=== PATIENT | female | born 1995 | race Caucasian/White ===

== ENCOUNTER 2016-12-16 15:00 | Emergency (ER) | payer OTHER ==
[2016-12-16] MEDS ORDERED: SUBLIMAZE 100 MCG/2 ML IV ONE (15:04)
[2016-12-16] MEDS ORDERED: Sodium Chloride 0.9% 1000 ML 1,000 ML ONE (15:11)
[2016-12-16] MEDS ORDERED: SUBLIMAZE 100 MCG/2 ML ONE (15:11)
[2016-12-16] MEDS ORDERED: Sodium Chloride 0.9% 1000 ML 1,000 ML IV SCH (15:15)
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
[2016-12-16 15:22] LABS: BASOPHIL % 0.2 % (0.0-0.4); Eosinophil % 0.4 % (0.00-5.0); Granulocytes % 72.1 % (36.0-66.0); Lymphocytes % 18.9 % (24.0-44.0); Mean Cell Volume 91.6 fl (78-100); Mean Corpuscular Hemoglobin 30.4 pg (26-32); Mean Platelet Volume 10.1 fl (6-9.5); Monocytes % 8.4 % (0.0-12.0); Platelet Count 173 K/mm3 (150-450); Red Blood Count 4.51 M/mm3 (4.1-5.4); Red Cell Distribution Width 12.1 % (11.5-14.0)
[2016-12-16 15:43] LABS: INR 1.11 (0.8-3.0); PROTIME 12.3 SECONDS (9.95-12.35)
[2016-12-16 15:45] LABS: ALKALINE PHOSPHATASE 87 U/L (46-116); ANION GAP 12.1 MEQ/L (5-15); BLOOD UREA NITROGEN 12 mg/dL (9-20); CHLORIDE 103 mEq/L (98-107); Carbon Dioxide 27.5 mEq/L (21-32); ETHYL ALCOHOL < 0.010 % (0.00-0.01); Glucose 88 MG/DL (70-110); PTT 29.5 SECONDS (25.3-37.0); SGOT/AST 39 U/L (15-37); SGPT/ALT 51 U/L (12-78); SODIUM 139 mEq/L (136-145); Total Protein 7.5 gm/dL (6.4-8.2)
[2016-12-16 16:16] LABS: Bilirubin NEGATIVE (NEGATIVE); Blood TRACE NON-HEM Ery/ul (0-5); COMPLETE URINE MICROSCOPIC? YES; Collection Type VOID; Glucose NEGATIVE (NEGATIVE); Leukocyte Esterase TRACE (NEGATIVE)
[2016-12-16 16:17] LABS: ADD URINE CULTURE? YES (NO); Bacteria MODERATE /HPF (NEGATIVE); Epithelial Cells PACKED /HPF (FEW); Mucus SLIGHT /HPF (NEGATIVE)
[2016-12-16 17:00] VITALS: BP 114/72; PULSE 104; O2SAT 98
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
== END 2016-12-16 17:09 | disposition home or self-care (01) ==
LOC: ED 15:00
DX: S20.212A Contusion of left front wall of thorax, initial encounter (principal); S13.4XXA Sprain of ligaments of cervical spine, initial encounter; V49.49XA Driver injured in collision with other motor vehicles in traffic accident, initial encounter; R10.9 Unspecified abdominal pain; M54.2 Cervicalgia; R07.9 Chest pain, unspecified
CPT/HCPCS: 36000; 36415; 71260; 72125; 74177; 80053; 80307; 81000; 84703; 85025; 85610; 85730; 86850; 86900; 86901; 87077; 87086; 87186; 93041; 96360; 96361; 96374; 99284; G0481; J3010

== ENCOUNTER 2021-04-18 11:25 | Emergency (ER) | payer OTHER ==
[2021-04-18] MEDS ORDERED: Zofran 4 MG/2 ML VIAL IV ONE (11:57)
[2021-04-18] MEDS ORDERED: Pepcid 20 MG VIAL IV ONE ×2 (11:57→12:09)
[2021-04-18] MEDS ORDERED: Sodium Chloride 0.9% 1000 ML 1,000 ML IV STA (11:57)
[2021-04-18] MEDS ORDERED: Zofran 4 MG/2 ML VIAL ONE (12:09)
[2021-04-18] MEDS ORDERED: TORAdol 30 mg Injection ONE (12:09)
[2021-04-18] MEDS ORDERED: Sodium Chloride 0.9% 1000 ML 1,000 ML ONE (12:09)
[2021-04-18 12:10] LABS: Absolute Neutrophil Ct (ANC) 2.51 (1.4-6.9); Basophil (Absolute #) 0.01 (0-0.4); Eosinophil % 0.7 % (0.00-5.0); Eosinophil (Absolute #) 0.03 (0-0.5); Hematocrit 42.4 % (35-47); Hemoglobin 13.9 gm/dl (12.0-16.0); Lymphocyte (Absolute #) 1.52 (1.0-4.6); Lymphocytes % 34.9 % (24.0-44.0); Mean Cell Volume 92.2 fl (78-100); Mean Corpuscular Hemoglobin 30.2 pg (26-32); Mean Corpuscular Hgb Concent. 32.8 g/dl (32-36); Mean Platelet Volume 10.3 fl (7.5-11.0); Monocyte (Absolute #) 0.29 (0.0-1.3); Monocytes % 6.7 % (0.0-12.0); Neutrophil % 57.5 % (36.0-66.0); Platelet Count 235 K/mm3 (150-450); Red Cell Distribution Width 12.1 % (11.5-14.0); White Blood Count 4.4 K/mm3 (4.0-10.5)
[2021-04-18 12:12] LABS: Appearance CLOUDY (CLEAR); Bilirubin NEGATIVE (NEGATIVE); Blood MODERATE Ery/ul (0-5); Epithelial Cells RARE /HPF (FEW); Glucose NEGATIVE (NEGATIVE); Ketones TRACE (NEGATIVE); Leukocyte Esterase NEGATIVE (NEGATIVE); Mucus MANY /HPF (NEGATIVE); Nitrite NEGATIVE (NEGATIVE); Protein,Urine Dip 30 (Negative); Urobilinogen NEGATIVE mg/dL (0-1); WBC 0-2 /HPF (0-5)
[2021-04-18] MEDS: TORAdol 30 mg Injection IV ONE ×2 (12:12→12:13)
[2021-04-18 12:31] LABS: ALBUMIN 4.3 g/dL (3.5-5.0); ALKALINE PHOSPHATASE 75 U/L (38-126); ANION GAP 12.9 MEQ/L (5-15); BLOOD UREA NITROGEN 13 mg/dL (7-17); CHLORIDE 106 mmol/L (98-107); Calcium 9.3 mg/dL (8.4-10.2); Carbon Dioxide 26 mmol/L (22-30); Creatinine 1 0.63 mg/dL (0.52-1.04); EST GLOMERULAR FILTRATION RATE > 60.0 ML/MIN; Glucose 87 mg/dL (74-106); LIPASE 81 U/L (23-300); Potassium 3.7 mmol/L (3.5-5.1); SGOT/AST 35 U/L (14-36); SGPT/ALT 62 U/L (0-35); SODIUM 141 mmol/L (137-145); Total Protein 7.1 g/dL (6.3-8.2)
[2021-04-18 12:43] VITALS: O2SAT 100
[2021-04-18 14:04] VITALS: BP 114/64
--- NOTE | 2021-04-18 14:27 | ERPHSYRPT ---
- History of Present Illness Time Seen by Provider: 04/18/21 11:32 Historian: patient Exam Limitations: no limitations Patient Subjective Stated Complaint: here for vomiting x3 yesterday and nausea. pain to right side of abd. no fever Triage Nursing Assessment: alert, walked in, resp easy, skin w/d/p, abd soft, tender to palpate Physician History: 25-year-old female presented to the ER with chief complaint of abdominal pain more on the right side and some on the left for the last 3 days, moderate intensity, associated with nausea and 2-3 episodes of nonprojectile, nonbilious vomiting without hematemesis. Timing/Duration: day(s) (3), resolved prior to arrival, gradual onset Activities at Onset: rest Quality: cramping, dullness Abdominal Pain Onset Location: RUQ, LUQ, RLQ, periumbilical Pain Radiation: no radiation Severity of Pain-Max: moderate Severity of Pain-Current: moderate Modifying Factors: Worsens With: movement, palpation, vomiting Associated Symptoms: nausea, vomiting Previous symptoms: no prior history Allergies/Adverse Reactions: No Known Drug Allergies Allergy (Verified 04/18/21 11:27) Home Medications: Omeprazole 20 MG [Prilosec 20 mg] 20 mg PO DAILY 12/16/16 [History] Hx Tetanus, Diphtheria Vaccination/Date Given: Yes (2016) Hx Influenza Vaccination/Date Given: No Hx Pneumococcal Vaccination/Date Given: No Immunizations Up to Date: Yes Travel Risk - International Travel Have you traveled outside of the country in past 3 weeks: No - Coronavirus Screening Are you exhibiting any of the following symptoms?: Yes Symptoms: Vomiting/Diarrhea Close contact with a COVID-19 positive Pt in past 14-21 Days: No - Vaccine Status Have you recieved a Covid-19 vaccination: No - Review of Systems Constitutional: No Symptoms Eyes: No Symptoms Ears, Nose, & Throat: No Symptoms Respiratory: No Symptoms Cardiac: No Symptoms Abdominal/Gastrointestinal: Abdominal Pain, Nausea, Vomiting Genitourinary Symptoms: No Symptoms Musculoskeletal: No Symptoms Skin: No Symptoms Neurological: No Symptoms Psychological: No Symptoms Endocrine: No Symptoms Hematologic/Lymphatic: No Symptoms Immunological/Allergic: No Symptoms - Past Medical History Pertinent Past Medical History: Yes Neurological History: No Pertinent History ENT History: No Pertinent History Cardiac History: No Pertinent History Respiratory History: No Pertinent History Endocrine Medical History: No Pertinent History Musculoskeletal History: No Pertinent History GI Medical History: GERD History: No Pertinent History Psycho-Social History: No Pertinent History Female Reproductive Disorders: No Pertinent History - Past Surgical History Past Surgical History: Yes Other Surgical History: EAR CYST REMOVAL - Social History Smoking Status: Never smoker Exposure to second hand smoke: No Drug Use: none Patient Lives Alone: No - Female History Hx Last Menstrual Period: now Hx Now: (unkn) - Nursing Vital Signs Nursing Vital Signs: Initial Vital Signs Temperature 98.7 F 04/18/21 11:28 Pulse Rate 78 04/18/21 11:28 Respiratory Rate 18 04/18/21 11:28 Blood Pressure 126/75 04/18/21 11:28 O2 Sat by Pulse Oximetry 97 04/18/21 11:28 Pain Scale Pain Intensity 4 - Physical Exam General Appearance: no apparent distress, alert Eye Exam: PERRL/EOMI Ears, Nose, Throat Exam: normal ENT inspection, pharynx normal Neck Exam: normal inspection, non-tender, supple, full range of motion Respiratory Exam: normal breath sounds, lungs clear Cardiovascular Exam: regular rate/rhythm, normal heart sounds Gastrointestinal/Abdomen Exam: soft, normal bowel sounds, tenderness (Mild to moderate generalized) Back Exam: normal inspection, normal range of motion, No CVA tenderness Extremity Exam: normal inspection, normal range of motion Neurologic Exam: alert, oriented x 3, cooperative Skin Exam: normal color SpO2 Interpretation: normal SpO2: 100 O2 Delivery: Room Air Ordered Tests: Active Orders 24 hr Category Date Time Status IV Insertion STAT Care 04/18/21 11:57 Active NPO (ED) STAT Care 04/18/21 11:57 Active ABDOMEN AND PELVIS W CONTRAST [CT] Stat Exams 04/18/21 13:03 Taken CBC W DIFF Stat Lab 04/18/21 11:50 Completed CMP Stat Lab 04/18/21 11:50 Completed HCG,QUALITATIVE URINE Stat Lab 04/18/21 11:58 Completed LIPASE Stat Lab 04/18/21 11:50 Completed UA W/RFX UR CULTURE Stat Lab 04/18/21 11:58 Completed Medication Summary Discontinued Medications Generic Name Dose Route Start Last Admin Trade Name Freq PRN Reason Stop Dose Admin Famotidine 20 mg 04/18/21 11:57 04/18/21 12:22 Famotidine 20 Mg/1 Vial IV 04/18/21 11:58 20 mg STAT ONE Administration Famotidine Confirm 04/18/21 12:09 Famotidine 20 Mg/1 Vial Administered 04/18/21 12:10 Dose 20 mg IV .STK-MED ONE Sodium Chloride 1,000 mls @ 999 mls/hr 04/18/21 11:57 04/18/21 14:02 Sodium Chloride 0.9% 1000 Ml IV 04/18/21 12:57 Infused .Q1H1M STA Infusion Sodium Chloride Confirm 04/18/21 12:09 Sodium Chloride 0.9% 1000 Ml Administered 04/18/21 12:10 Dose 1,000 mls @ ud .ROUTE .STK-MED ONE Ketorolac Tromethamine 30 mg 04/18/21 11:57 04/18/21 12:13 Ketorolac Tromethamine 30 Mg/Ml Inj IV 04/18/21 11:58 30 mg STAT ONE Administration Ketorolac Tromethamine Confirm 04/18/21 12:09 Ketorolac Tromethamine 30 Mg/Ml Inj Administered 04/18/21 12:10 Dose 30 mg .ROUTE .STK-MED ONE Ondansetron HCl 4 mg 04/18/21 11:57 04/18/21 12:11 Ondansetron Hcl 4 Mg/2 Ml Vial IV 04/18/21 11:58 4 mg STAT ONE Administration Ondansetron HCl Confirm 04/18/21 12:09 Ondansetron Hcl 4 Mg/2 Ml Vial Administered 04/18/21 12:10 Dose 4 mg .ROUTE .STK-MED ONE Lab/Rad Data: Laboratory Result Diagrams 04/18/21 11:50 04/18/21 11:50 Laboratory Results 04/18/21 04/18/21 04/18/21 Range/Units 11:58 11:58 11:50 WBC (4.0-10.5) K/mm3 RBC (4.1-5.4) M/mm3 Hgb (12.0-16.0) gm/dl Hct (35-47) % MCV (78-100) fl MCH (26-32) pg MCHC (32-36) g/dl RDW (11.5-14.0) % Plt Count (150-450) K/mm3 MPV (7.5-11.0) fl Gran % (36.0-66.0) % Eos # (Auto) (0-0.5) Absolute Lymphs (auto) (1.0-4.6) Absolute Monos (auto) (0.0-1.3) Lymphocytes % (24.0-44.0) % Monocytes % (0.0-12.0) % Eosinophils % (0.00-5.0) % Basophils % (0.0-0.4) % Absolute Granulocytes (1.4-6.9) Basophils # (0-0.4) Sodium 141 (137-145) mmol/L Potassium 3.7 (3.5-5.1) mmol/L Chloride 106 (98-107) mmol/L Carbon Dioxide 26 (22-30) mmol/L Anion Gap 12.9 (5-15) MEQ/L BUN 13 (7-17) mg/dL Creatinine 0.63 (0.52-1.04) mg/dL Estimated GFR > 60.0 ML/MIN Glucose 87 (74-106) mg/dL Calcium 9.3 (8.4-10.2) mg/dL Total Bilirubin 1.40 H (0.2-1.3) mg/dL AST 35 (14-36) U/L ALT 62 H (0-35) U/L Alkaline Phosphatase 75 (38-126) U/L Serum Total Protein 7.1 (6.3-8.2) g/dL Albumin 4.3 (3.5-5.0) g/dL Lipase 81 (23-300) U/L Urine Color YELLOW (YELLOW) Urine Appearance CLOUDY (CLEAR) Urine pH 6.0 (5-6) Ur Specific [place] 1.020 (1.005-1.025) Urine Protein 30 (Negative) Urine Ketones TRACE (NEGATIVE) Urine Blood MODERATE (0-5) Jose Antonio/ul Urine Nitrite NEGATIVE (NEGATIVE) Urine Bilirubin NEGATIVE (NEGATIVE) Urine Urobilinogen NEGATIVE (0-1) mg/dL Ur Leukocyte Esterase NEGATIVE (NEGATIVE) Urine WBC (Auto) 0-2 (0-5) /HPF Urine RBC (Auto) NONE (0-2) /HPF U Epithel Cells (Auto) RARE (FEW) /HPF Urine Bacteria (Auto) NONE (NEGATIVE) /HPF Urine Mucus (Auto) MANY (NEGATIVE) /HPF Urine Culture Reflexed NO (NO) Urine Glucose NEGATIVE (NEGATIVE) mg/dL Urine HCG, Qual NEGATIVE (Negative) 04/18/21 Range/Units 11:50 WBC 4.4 (4.0-10.5) K/mm3 RBC 4.60 (4.1-5.4) M/mm3 Hgb 13.9 (12.0-16.0) gm/dl Hct 42.4 (35-47) % MCV 92.2 (78-100) fl MCH 30.2 (26-32) pg MCHC 32.8 (32-36) g/dl RDW 12.1 (11.5-14.0) % Plt Count 235 (150-450) K/mm3 MPV 10.3 (7.5-11.0) fl Gran % 57.5 (36.0-66.0) % Eos # (Auto) 0.03 (0-0.5) Absolute Lymphs (auto) 1.52 (1.0-4.6) Absolute Monos (auto) 0.29 (0.0-1.3) Lymphocytes % 34.9 (24.0-44.0) % Monocytes % 6.7 (0.0-12.0) % Eosinophils % 0.7 (0.00-5.0) % Basophils % 0.2 (0.0-0.4) % Absolute Granulocytes 2.51 (1.4-6.9) Basophils # 0.01 (0-0.4) Sodium (137-145) mmol/L Potassium (3.5-5.1) mmol/L Chloride (98-107) mmol/L Carbon Dioxide (22-30) mmol/L Anion Gap (5-15) MEQ/L BUN (7-17) mg/dL Creatinine (0.52-1.04) mg/dL Estimated GFR ML/MIN Glucose (74-106) mg/dL Calcium (8.4-10.2) mg/dL Total Bilirubin (0.2-1.3) mg/dL AST (14-36) U/L ALT (0-35) U/L Alkaline Phosphatase (38-126) U/L Serum Total Protein (6.3-8.2) g/dL Albumin (3.5-5.0) g/dL Lipase (23-300) U/L Urine Color (YELLOW) Urine Appearance (CLEAR) Urine pH (5-6) Ur Specific [place] (1.005-1.025) Urine Protein (Negative) Urine Ketones (NEGATIVE) Urine Blood (0-5) Jose Antonio/ul Urine Nitrite (NEGATIVE) Urine Bilirubin (NEGATIVE) Urine Urobilinogen (0-1) mg/dL Ur Leukocyte Esterase (NEGATIVE) Urine WBC (Auto) (0-5) /HPF Urine RBC (Auto) (0-2) /HPF U Epithel Cells (Auto) (FEW) /HPF Urine Bacteria (Auto) (NEGATIVE) /HPF Urine Mucus (Auto) (NEGATIVE) /HPF Urine Culture Reflexed (NO) Urine Glucose (NEGATIVE) mg/dL Urine HCG, Qual (Negative) - Progress Progress: improved Progress Note: 04/18/21 14:24 She is given fluids along with Zofran and Toradol for symptomatic relief. On reevaluation patient is pain-free, no nausea or vomiting while in the ER. Has normal white count, grossly unremarkable chemistries, no UTI. CT showed right adnexal cyst but no other acute intra-abdominal findings. Recommended outpatient follow-up with [facility]. Discussed signs symptoms of worsening needing return to ER which she seems understanding. Stable for discharge. Counseled pt/family regarding: lab results, diagnosis, need for follow-up, rad results - Departure Departure Disposition: Home Clinical Impression: Generalized abdominal pain, Adnexal cyst Condition: Stable Critical Care Time: No Referrals: FRANCY BRAVO MD [Primary Care Provider] - Follow Up with PCP/3 days Instructions: Acute Abdomen (Belly Pain), Adult (DC), Ovarian Cyst (DC) Additional Instructions: Take Tylenol/ibuprofen as needed for pain. Follow-up with primary care for reevaluation/[facility]. Return to ER for worsening pain, intractable nausea vomiting/fever chills
[2021-04-18 14:29] VITALS: PULSE 48
--- NOTE | 2021-04-18 19:34 | XRAY ---
Indication: Right abdomen pain, nausea, and vomiting. Multiple contiguous axial images obtained through the abdomen and pelvis using 80 cc Isovue 370 contrast. Comparison: December 16, 2016. Lung bases remain clear. Heart not enlarged. Noncontrasted stomach and bowel loops nonobstructed. Appendix not visualized. New 3.3 cm right ovary cyst. No free fluid/air. Remaining liver, gallbladder, pancreas, spleen, adrenal glands, kidneys, ureters, bladder, uterus, and aorta are unremarkable. No pathologic retroperitoneal lymphadenopathy. Osseous structures intact. Impression: 1. New 3.3 cm right ovary cyst. 2. Remaining CT abdomen/pelvis with contrast exam is negative. Comment: Preliminary interpretation made by [facility]. No critical discrepancy.
== END 2021-04-18 14:35 | disposition home or self-care (01) ==
LOC: ED 11:25
DX: N83.201 Unspecified ovarian cyst, right side (principal); R10.84 Generalized abdominal pain; R11.2 Nausea with vomiting, unspecified; K21.9 Gastro-esophageal reflux disease without esophagitis
CPT/HCPCS: 36000; 36415; 74177; 80053; 81001; 83690; 84703; 85025; 96360; 96374; 96375; 99284; J1885; J2405

== ENCOUNTER 2024-06-16 09:43 | Emergency (ER) | payer BC, OTHER ==
[2024-06-16 10:15] VITALS: RESP 18; TEMP 98.9; O2SAT 99
[2024-06-16 10:16] LABS: HCG URINE TEST NEGATIVE (NEGATIVE)
[2024-06-16 10:17] LABS: Appearance CLEAR (Clear); Ph 6.5 (4.6-8.0)
[2024-06-16 10:18] LABS: Bilirubin Negative (Negative); Blood Negative (Negative); Glucose, Urine Negative (Negative); Ketones 15 (Negative); Leukocyte Esterase Trace (Negative); Nitrite Negative (Negative); Protein,Urine Dip Negative (Negative); Urobilinogen 0.2 mg/dL (0.2)
--- NOTE | 2024-06-16 10:26 | ERPHSYRPT ---
- History of Present Illness Time Seen by Provider: 06/16/24 10:26 Source: patient Exam Limitations: no limitations Patient Subjective Stated Complaint: C/O UTI for 2 days. Indicates dysuria and low back pain. Triage Nursing Assessment: Patient ambulated back to ER. She is alert and oriented. NO SOB. Skin tone normal. Denies abdominal or pelvic pain. Timing/Duration: day(s) (2) Activites at Onset: none Quality: cramping Onset Location: suprapubic, generalized flank Pain Radiation: none Severity of Pain-Max: mild Severity of Pain-Current: mild Prior abdominal problems: UTI Sexual intercourse history: less than 2 months ago, single partner Associated Symptoms: nausea, vomiting, dysuria, polyuria, urinary frequency, No abdominal pain, No fever, No vaginal discharge, No vaginal fluid leakage Allergies/Adverse Reactions: No Known Drug Allergies Allergy (Verified 06/16/24 10:05) Home Medications: Norethindrone AC-Eth Estradiol [Aurovela 1 mg-20 Mcg Tablet] 1 tab PO DAILY 06/16/24 [History] Hx Tetanus, Diphtheria Vaccination/Date Given: Yes (2016) Hx Influenza Vaccination/Date Given: No Hx Pneumococcal Vaccination/Date Given: No Travel Risk - International Travel Have you traveled outside of the country in past 3 weeks: No - Emerging Infectious Disease Are you exhibiting symptoms associated with any current EIDs: Yes Symptoms: Vomitting - Review of Systems All Other Systems: Reviewed and Negative - Past Medical History Pertinent Past Medical History: Yes Neurological History: No Pertinent History ENT History: No Pertinent History Cardiac History: No Pertinent History Respiratory History: No Pertinent History Endocrine Medical History: No Pertinent History Musculoskeletal History: No Pertinent History GI Medical History: GERD History: No Pertinent History Psycho-Social History: No Pertinent History Female Reproductive Disorders: No Pertinent History - Past Surgical History Past Surgical History: Yes Other Surgical History: EAR CYST REMOVAL - Female History Hx Last Menstrual Period: 06/10/24 Hx Now: No ( control pill) - Social History Smoking Status: Never smoker Exposure to second hand smoke: No Drug Use: none - Social Determinants of Health Will the patient participate in the screening: Yes Do you worry about a steady place to live?: No Do you have any problems with any of the following?: No known problems In the past 12 months,have you had to go without utilities?: No Transportation Issues: No Has anyone in your support network made you feel unsafe?: No Have you or anyone in your house had to go w/o enough food: No - Nursing Vital Signs Nursing Vital Signs: Initial Vital Signs Temperature 98.9 F 06/16/24 10:00 Pulse Rate 64 06/16/24 10:00 Respiratory Rate 18 06/16/24 10:00 Blood Pressure 120/68 06/16/24 10:00 O2 Sat by Pulse Oximetry 99 06/16/24 10:00 Pain Scale Pain Intensity 6 - Physical Exam General Appearance: no apparent distress Respiratory Exam: normal breath sounds, airway intact, No respiratory distress Cardiovascular Exam: regular rate/rhythm, capillary refill <2 sec Gastrointestinal/Abdomen Exam: soft, tenderness (suprapubic) Back Exam: CVA tenderness (bilateral) Neurologic Exam: alert, oriented x 3, cooperative Skin Exam: normal color, warm, dry, No rash SpO2 Interpretation: normal SpO2: 99 O2 Delivery: Room Air - Course Nursing assessment & vital signs reviewed: Yes Ordered Tests: Active Orders 24 hr Category Date Time Status CULTURE,URINE Stat Lab 06/16/24 10:06 Received HCG QUALITATIVE, URINE Stat Lab 06/16/24 10:06 Completed UA W/RFX UR CULTURE Stat Lab 06/16/24 10:06 Completed Medication Summary Discontinued Medications Generic Name Dose Route Start Last Admin Trade Name Deionq PRN Reason Stop Dose Admin Nitrofurantoin Macrocrystals 100 mg 06/16/24 10:29 06/16/24 10:31 Nitrofurantoin Macro 100 Mg Capsule PO 06/16/24 10:30 100 mg STAT ONE Administration Nitrofurantoin Macrocrystals Confirm 06/16/24 10:30 Nitrofurantoin Macro 100 Mg Capsule Administered 06/16/24 10:31 Dose 100 mg .ROUTE .STK-MED ONE Lab/Rad Data: Laboratory Results 06/16/24 06/16/24 Range/Units 10:06 10:06 Urine Color YELLOW (Yellow) Urine Appearance CLEAR (Clear) Urine pH 6.5 (4.6-8.0) Ur Specific [place] 1.020 (1.005-1.030) Urine Protein Negative (Negative) Urine Glucose (UA) Negative (Negative) mg/dL Urine Ketones 15 A (Negative) Urine Blood Negative (Negative) Urine Nitrite Negative (Negative) Urine Bilirubin Negative (Negative) Urine Urobilinogen 0.2 (0.2) mg/dL Ur Leukocyte Esterase Trace A (Negative) Urine Microscopic WBC 3-5 (0-5) /HPF Ur Epithelial Cells Moderate A (None Seen) /HPF Urine Bacteria Few A (None Seen) /HPF Urine Culture Reflexed YES (NO) Urine HCG, Qual NEGATIVE (NEGATIVE) - Progress Progress Note: 06/16/24 10:36 Differential Diagnosis: -UTI (possible due to dysuria, urinary frequency, and CVA tenderness) -Pyelonephritis (possible due to dysuria, urinary frequency, CVA tenderness, nausea, and vomiting) Due to the chief complaint, the following diagnoses were also considered but the signs/symptoms, physical exam, and data points are not consistent with any of the following: ectopic , ovarian torsion, pelvic inflammatory disease, appendicitis, diverticulitis, kidney stones, bladder cancer, prostate cancer, sexually transmitted infections, interstitial cystitis, urethritis, vaginitis, vulvodynia, prostatitis, epididymitis, orchitis. Rationale for Diagnosis and Decision Making: Given the patient's presentation of dysuria, urinary frequency, bilateral CVA tenderness, nausea, and vomiting, a UTI, including pyelonephritis, is suspected. Urinalysis and urine culture were ordered to confirm the diagnosis. The patient will be started on antibiotics. The final diagnosis and treatment plan will be determined after the urine culture results are available. Shared decision making will be used to determine the best course of treatment for the patient. Empirically tx with Macrobid. Blood Culture(s) Obtained: No Antibiotics given: Yes Counseled pt/family regarding: lab results, diagnosis, need for follow-up Medical Desision Making - Diagnostic Testing Diagnostic test were ordered, analyzed, and reviewed by me: Yes Radiological Interpretation: Interpreted by me - Risk of complications The pt has a mod risk of morbidity or mortality based on: Need for prescription drug management - Departure Departure Disposition: Home Clinical Impression: UTI (urinary tract infection) Condition: Good Critical Care Time: No Referrals: FRANCY BRAVO MD [Primary Care Provider] - Follow up/PCP as directed Instructions: Urinary Tract Infection, Adult (DC) Prescriptions: Nitrofurantoin Macro 100 mg [Macrobid 100MG Capsule] 100 mg PO BID 5 Days #9 cap
[2024-06-16 10:27] LABS: Bacteria Few /HPF (None Seen); Epithelial Cells Moderate /HPF (None Seen)
[2024-06-16] MEDS ORDERED: Macrobid 100MG Capsule ONE (10:30)
[2024-06-16] MEDS: Macrobid 100MG Capsule PO ONE (10:31)
[2024-06-16 10:58] VITALS: BP 109/64; PULSE 60
== END 2024-06-16 10:59 | disposition home or self-care (01) ==
LOC: ED 09:43
DX: N39.0 Urinary tract infection, site not specified (principal); R30.0 Dysuria; M54.50 Low back pain, unspecified; Z79.899 Other long term (current) drug therapy
CPT/HCPCS: 81001; 81025; 87086; 99283; A9270-GY